=== PATIENT | male | born 1960 | race African-American/Black ===

== ENCOUNTER 2017-11-25 10:17 | Emergency (ER) | payer OTHER ==
[~2017-11-25] VITALS: Ht 185.4 cm; Wt 75.0 kg
[2017-11-25 10:24] VITALS: BP 146/88; PULSE 89; RESP 17; O2SAT 94
[2017-11-25 10:35] VITALS: BP 146/88; PULSE 89; RESP 17; TEMP 98.5; O2SAT 94
[2017-11-25] MEDS ORDERED: SODIUM CHLOR 0.9% 1000 ML INJ 1,000 ML IV SCH (10:53)
[2017-11-25] MEDS ORDERED: SODIUM CHLORIDE 0.9% FLUSH 10 ML FLUSH IV FLUSH PRN (11:00)
[2017-11-25] MEDS ORDERED: SODIUM CHLOR 0.9% 1000 ML INJ 1,000 ML IV ONE ×2 (11:00→13:00)
[2017-11-25 11:01] VITALS: BP 146/88; PULSE 89; RESP 17; TEMP 98.5; O2SAT 95
--- NOTE | 2017-11-25 11:31 | RADRPT ---
EXAM DATE/TIME: 11/25/2017 11:09 [place] COMPARISON: CT BRAIN W/O CONTRAST, March 14, 2016, 11:28. INDICATIONS : Altered mental status. RADIATION DOSE: 33.97 CTDIvol (mGy) MEDICAL HISTORY : Seizures. Cardiovascular disease SURGICAL HISTORY : None. ENCOUNTER: Initial ACUITY: 1 day PAIN SCALE: Non-responsive LOCATION: head TECHNIQUE: Multiple contiguous axial images were obtained of the head. Using automated exposure control and adj ustment of the mA and/or kV according to patient size, radiation dose was kept as low as reasonably a chievable to obtain optimal diagnostic quality images. DICOM format image data is available electro nically for review and comparison. 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 This is not significantly c hanged. No signs of acute infarct, hemorrhage or mass. Mild periventricular white matter disease. No fractures. CONCLUSION: No significant change has occurred. Britton Morales MD on November 25, 2017 at 11:28 Board Certified Radiologist. This report was verified electronically.
[2017-11-25 11:49] LABS: AUTOMATED NEUTROPHIL # 6.6 TH/MM3 (1.8-7.7); BASOPHIL % 0.3 % (0.0-2.0); EOSINOPHIL # 0.2 TH/MM3 (0-0.4); EOSINOPHIL % 2.8 % (0.0-4.0); HEMATOCRIT 40.2 % (39.0-51.0); HEMOGLOBIN 13.7 GM/DL (13.0-17.0); LYMPH % 12.8 % (9.0-44.0); LYMPHOCYTE # 1.1 TH/MM3 (1.0-4.8); MEAN CELL VOLUME 91.6 FL (80.0-100.0); MEAN CORPUSCULAR HEMOGLOBIN 31.1 PG (27.0-34.0); MEAN CORPUSCULAR HGB CONC 33.9 % (32.0-36.0); MEAN PLATELET VOLUME 7.5 FL (7.0-11.0); MONO % 6.1 % (0.0-8.0); MONOCYTE # 0.5 TH/MM3 (0-0.9); PLATELET COUNT 258 TH/MM3 (150-450); RED BLOOD COUNT 4.39 MIL/MM3 (4.50-5.90); RED CELL DISTRIBUTION WIDTH 14.6 % (11.6-17.2); WHITE BLOOD COUNT 8.4 TH/MM3 (4.0-11.0)
[2017-11-25 12:07] LABS: ALBUMIN 3.7 GM/DL (3.4-5.0); ALT (GPT) 24 U/L (12-78); AST (GOT) 30 U/L (15-37); BICARBONATE 22.5 MEQ/L (21.0-32.0); BLOOD UREA NITROGEN 18 MG/DL (7-18); CALCIUM 8.8 MG/DL (8.5-10.1); CHLORIDE 105 MEQ/L (98-107); CREATININE 2.06 MG/DL (0.60-1.30); GLOMERULAR FILTRATION RATE 40 ML/MIN (>89); GLUCOSE,RANDOM 105 MG/DL (74-106); SODIUM (NA) 142 MEQ/L (136-145)
--- NOTE | 2017-11-25 12:08 | PD ---
HPI Chief Complaint: Altered Mental Status Time Seen by Provider: 10:30 Travel History International Travel<30 days: No Contact w/Intl Traveler<30days: No Traveled to known affect area: No History of Present Illness HPI The patient is 57 years old and arrives to the ER by EMS. At the time of evaluation he is slow to respond to questions thereby limiting history of present illness. EMS reports the family entered the patient's room this morning he is found to be not answering questions. EMS was therefore called. Vital signs are normal in route according to EMS. PFSH Past Medical History Arthritis: Yes Cancer: No Cardiovascular Problems: Yes Endocrine: No Genitourinary: No Immune Disorder: No Musculoskeletal: Yes Neurologic: Yes Psychiatric: No Reproductive: No Respiratory: Yes Seizures: Yes (X 1 LAST YEAR) Tetanus Vaccination: Unknown Influenza Vaccination: No Past Surgical History Surgical History: No Previous Surgery Social History Alcohol Use: Yes Tobacco Use: Yes Substance Use: Yes (SMOKES CRACK "MOSTLY ON THE WEEKENDS") Allergies-Medications (Allergen,Severity, Reaction): Coded Allergies: No Known Allergies (Verified Adverse Reaction, Unknown, 11/25/17) Reported Meds & Prescriptions Reported Meds & Active Scripts Active No Active Prescriptions or Reported Medications Review of Systems ROS Limitations: Clinical Condition General / Constitutional: No: Fever Physical Exam Narrative GENERAL: 56-year-old male pleasant well-nourished well-developed tells me his name and that he is in the hospital also denies chest pain Vital Signs Date Time Temp Pulse Resp B/P (MAP) Pulse Ox O2 Delivery O2 Flow Rate FiO2 11/25/17 11:01 98.5 89 17 146/88 (107) 95 Room Air 11/25/17 10:35 98.5 89 17 146/88 (107) 94 Room Air 11/25/17 10:31 89 17 94 Room Air 11/25/17 10:24 89 17 146/88 (107) 94 SKIN: Warm and dry. HEAD: Atraumatic. Normocephalic. EYES: Pupils equal and round. No scleral icterus. No injection or drainage. ENT: No nasal bleeding or discharge. Mucous membranes pink and moist. NECK: Trachea midline. No JVD. CARDIOVASCULAR: Regular rate and rhythm. RESPIRATORY: No accessory muscle use. Clear to auscultation. Breath sounds equal bilaterally. GASTROINTESTINAL: Abdomen soft, non-tender, nondistended. Hepatic and splenic margins not palpable. MUSCULOSKELETAL: Extremities without clubbing, cyanosis, or edema. No obvious deformities. NEUROLOGICAL: No focal cranial nerve deficit. Moves all extremities. PSYCHIATRIC: Unable to assess. Data Data Last Documented VS Vital Signs Date Time Temp Pulse Resp B/P (MAP) Pulse Ox O2 Delivery O2 Flow Rate FiO2 11/25/17 12:30 80 12 143/74 (97) 98 Room Air 11/25/17 11:01 98.5 Orders Orders Electrocardiogram (11/25/17 10:53) Ammonia (11/25/17 10:53) Complete Blood Count With Diff (11/25/17 10:53) Comprehensive Metabolic Panel (11/25/17 10:53) Creatine Kinase (Cpk) (11/25/17 10:53) Troponin I (11/25/17 10:53) Thyroid Stimulating Hormone (11/25/17 10:53) Urinalysis - C+S If Indicated (11/25/17 10:53) Ct Brain W/O Iv Contrast(Rout) (11/25/17 10:53) Blood Glucose (11/25/17 10:53) Ecg Monitoring (11/25/17 10:53) Iv Access Insert/Monitor (11/25/17 10:53) Oximetry (11/25/17 10:53) Sodium Chloride 0.9% Flush (Ns Flush) (11/25/17 11:00) Sodium Chlor 0.9% 1000 Ml Inj (Ns 1000 M (11/25/17 10:53) Drug Screen, Random Urine (11/25/17 10:53) Alcohol (Ethanol) (11/25/17 10:53) Tylenol (Acetaminophen) (11/25/17 10:53) Salicylates (Aspirin) (11/25/17 10:53) Sodium Chlor 0.9% 1000 Ml Inj (Ns 1000 M (11/25/17 11:00) Urine Culture (11/25/17 11:50) CKMB (11/25/17 11:00) CKMB% (11/25/17 11:00) Sodium Chlor 0.9% 1000 Ml Inj (Ns 1000 M (11/25/17 13:00) Ed Discharge Order (11/25/17 12:56) Labs Laboratory Tests Test 4/28/18 11:00 11/25/17 11:35 11/25/17 11:50 White Blood Count 8.4 TH/MM3 Red Blood Count 4.39 MIL/MM3 Hemoglobin 13.7 GM/DL Hematocrit 40.2 % Mean Corpuscular Volume 91.6 FL Mean Corpuscular Hemoglobin 31.1 PG Mean Corpuscular Hemoglobin Concent 33.9 % Red Cell Distribution Width 14.6 % Platelet Count 258 TH/MM3 Mean Platelet Volume 7.5 FL Neutrophils (%) (Auto) 78.0 % Lymphocytes (%) (Auto) 12.8 % Monocytes (%) (Auto) 6.1 % Eosinophils (%) (Auto) 2.8 % Basophils (%) (Auto) 0.3 % Neutrophils # (Auto) 6.6 TH/MM3 Lymphocytes # (Auto) 1.1 TH/MM3 Monocytes # (Auto) 0.5 TH/MM3 Eosinophils # (Auto) 0.2 TH/MM3 Basophils # (Auto) 0.0 TH/MM3 CBC Comment DIFF FINAL Differential Comment Blood Urea Nitrogen 18 MG/DL Creatinine 2.06 MG/DL Random Glucose 105 MG/DL Total Protein 8.4 GM/DL Albumin 3.7 GM/DL Calcium Level 8.8 MG/DL Alkaline Phosphatase 81 U/L Aspartate Amino Transf (AST/SGOT) 30 U/L Alanine Aminotransferase (ALT/SGPT) 24 U/L Total Bilirubin 0.5 MG/DL Sodium Level 142 MEQ/L Potassium Level 4.0 MEQ/L Chloride Level 105 MEQ/L Carbon Dioxide Level 22.5 MEQ/L Anion Gap 15 MEQ/L Estimat Glomerular Filtration Rate 40 ML/MIN Total Creatine Kinase 410 U/L Creatine Kinase MB 7.3 NG/ML Creatine Kinase MB % 1.8 % Troponin I LESS THAN 0.02 NG/ML Thyroid Stimulating Hormone 3rd Gen 0.876 uIU/ML Salicylates Level LESS THAN 1.7 MG/DL Acetaminophen Level LESS THAN 2.0 MCG/ML Ethyl Alcohol Level LESS THAN 3 MG/DL Ammonia 36 MCMOL/L Urine Color YELLOW Urine Turbidity HAZY Urine pH 5.5 Urine Specific [place] 1.015 Urine Protein 30 mg/dL Urine Glucose (UA) NEG mg/dL Urine Ketones NEG mg/dL Urine Occult Blood MOD Urine Nitrite NEG Urine Bilirubin NEG Urine Urobilinogen LESS THAN 2.0 MG/DL Urine Leukocyte Esterase SMALL Urine RBC 2 /hpf Urine WBC 6 /hpf Urine Squamous Epithelial Cells <1 /hpf Urine Mucus FEW /lpf Microscopic Urinalysis Comment CATH-CULTURE IND Urine Opiates Screen NEG Urine Barbiturates Screen NEG Urine Amphetamines Screen NEG Urine Benzodiazepines Screen NEG Urine Cocaine Screen POS Urine Cannabinoids Screen NEG MDM Medical Decision Making Medical Screen Exam Complete: Yes Emergency Medical Condition: Yes Medical Record Reviewed: Yes Differential Diagnosis Positives abuse, intracranial hemorrhage, metabolic disarray, infection Narrative Course Head CT is normal CBC & BMP Diagram 11/25/17 11:00 Total Protein 8.4 H, Albumin 3.7, Calcium Level 8.8, Alkaline Phosphatase 81, Aspartate Amino Transf (AST/SGOT) 30, Alanine Aminotransferase (ALT/SGPT) 24, Total Bilirubin 0.5 Total CK 410 Ammonia 36 TSH 0.876 Tn < 0.02 UA essentially normal Tox: positive for cocaine Patient answers questions at 11:55 PM and is ready for discharge. There is mild bump in creatinine from its peak of 1.75 obtained approximately 18 months prior. Patient has received IV fluids and will be suitable for discharge after transfusion. EKG shows a sinus rhythm at a rate of [address] changes various leads Diagnosis Primary Impression: Drug abuse Additional Impression: ROSE (acute kidney injury) Referrals: [facility] call for appointment Med/Other Pt SpecificInfo: No Change to Meds Scripts No Active Prescriptions or Reported Meds Disposition: 01 DISCHARGE HOME Condition: Stable Maurilio Caba MD Nov 25, 2017 12:08
[2017-11-25 12:13] LABS: ACETAMINOPHEN LESS THAN 2.0 MCG/ML (10.0-30.0)
[2017-11-25 12:15] LABS: BILIRUBIN, URINE NEG (NEG); BLOOD, URINE MOD (NEG); GLUCOSE,URINE NEG (NEG); KETONE, URINE NEG (NEG); MUCUS URINE FEW /lpf (OCC); NITRITE,URINE NEG (NEG); PH, URINE 5.5 (5.0-8.5); SQUAMOUS EPITHELIAL CELL URINE <1 /hpf (0-5); URINE COLOR YELLOW (YELLW/STRAW); URINE LEUKOCYTE ESTERASE SMALL (NEG)
[2017-11-25 12:17] LABS: ALKALINE PHOSPHATASE 81 U/L (45-117); TOTAL BILIRUBIN ADULT 0.5 MG/DL (0.2-1.0); TOTAL PROTEIN 8.4 GM/DL (6.4-8.2); TROPONIN I LESS THAN 0.02 NG/ML (0.02-0.05)
[2017-11-25 12:30] VITALS: BP 143/74; PULSE 80; RESP 12; O2SAT 98
[2017-11-25 13:47] VITALS: BP 138/73
--- NOTE | 2017-11-26 00:25 | EKG ---
Date Performed: 11/25/2017 Time Performed: 11:36:38 PTAGE: 57 years EKG: Sinus rhythm POSSIBLE LEFT ATRIAL ENLARGEMENT POSSIBLE LEFT VENTRICULAR HYPERTROPHY NONSPECIFIC ST & T-WAVE ABNOR MALITY ABNORMAL ECG NO PREVIOUS TRACING DOCTOR: Jatin Caba Interpretating Date/Time 11/26/2017 00:23:28
== END 2017-11-25 13:48 | disposition home or self-care (01) ==
LOC: NEPE 10:17
DX: F19.10 Other psychoactive substance abuse, uncomplicated (principal); N17.9 Acute kidney failure, unspecified; R94.31 Abnormal electrocardiogram [ECG] [EKG]; Z72.0 Tobacco use
CPT/HCPCS: 70450; 80053; 80307; 81001; 82140; 82550; 82552; 84443; 84484; 85025; 87086; 93005; 96360; 96361; 99285; J7030